=== PATIENT | female | born 1965 | race African-American/Black ===

== ENCOUNTER → 2016-08-28 | Outpatient (CLI) | payer OTHER ==
[~2016-08-28] MED LIST: AMLODIPINE BESY10 MG PO; ASPIRIN EC325 M1 PO; CALCITRIOL0.5 MCG PO; CELLCEPT500 MG PO; COZAAR 50 MG TA50 MG PO; COZAAR100 MG PO; CYCLOSPORINE N PO; DAPSONE PO; DAPSONE25 MG; FERRO-TIME325 MG PO; HYDROCODON-ACE1 EAC3 PO; OMEPRAZOLE 20 M20 M1 PO; PAIN & FEVER325 MG PO; PREDNISONE 5 MG5 M1 PO; SIMVASTATIN20 MG PO; SIMVASTATIN40 MG PO; [UNRECOGNIZED DRUG - CODE] PO
== END ==
LOC: RAD 14:42
DX: Z12.31 Encounter for screening mammogram for malignant neoplasm of breast (principal)

== ENCOUNTER → 2017-12-18 | Outpatient (CLI) | payer OTHER | LOC: RAD 10:38 | DX: Z12.31 Encounter for screening mammogram for malignant neoplasm of breast (principal); I10 Essential (primary) hypertension; E78.00 Pure hypercholesterolemia, unspecified ==

== ENCOUNTER → 2019-04-01 | Outpatient (CLI) | payer OTHER | LOC: RAD 14:37 | DX: Z12.31 Encounter for screening mammogram for malignant neoplasm of breast (principal); J90 Pleural effusion, not elsewhere classified; R91.1 Solitary pulmonary nodule; I51.7 Cardiomegaly; Z94.0 Kidney transplant status ==